=== PATIENT | female | born 2000 | race Native Hawaiian/Other Pacific Islander ===

== ENCOUNTER → 2018-03-10 | Outpatient (CLI) | payer OTHER ==
[~2018-03-10] MED LIST: AMOXICILLIN500 MG PO; ATARAX25 MG PO; CLARITIN-D 12 H1 TAB PO; FLONASE ALLERG9.9 ML NAS; KEFLEX500 MG PO; NAPROSYN500 MG PO; NKHM; PREDNISONE10 MG PO; PREDNISONE20 MG PO
[2018-03-10 11:27] LABS: BASO % 0.1 % (0.0-1.0); HEMATOCRIT 39.7 % (37.0-47.0); HEMOGLOBIN 12.9 g/dl (12.0-16.0); LYMPH # 1.6 10*3/uL (1.3-4.4); LYMPH % 11.8 % (27.0-41.0); MEAN CELL VOLUME 87.1 fl (81.0-99.0); MEAN CORPUSCULAR HGB 28.3 pg (27.0-31.0); MEAN CORPUSCULAR HGB CONC 32.5 g/dl (33.0-37.0); MEAN PLATELET VOLUME 10.2 fl (9.6-12.3); MONO # 0.9 10*3/uL (0.1-1.0); MONO % 6.3 % (3.0-9.0); NEUT # 11.2 10*3/uL (2.3-7.9); NEUT % 81.6 % (47.0-73.0); PLATELET COUNT AUTOMATED 357 10*3/uL (130-400); RED BLOOD COUNT 4.56 10*6/uL (4.10-5.10); RED CELL DISTRI WIDTH 12.4 % (0-14.5); WHITE BLOOD COUNT 13.7 10*3/uL (4.8-10.8)
[2018-03-10 12:02] LABS: ALKALINE PHOSPHATASE 70 U/L (45-117); BUN 9 mg/dl (7-24); CHLORIDE 102 mmol/L (98-107); CREATININE 0.94 mg/dL (0.55-1.02); POTASSIUM 3.8 mmol/L (3.5-5.1); SGOT/AST 16 IU/L (3-35); SGPT/ALT 24 U/L (12-78); SODIUM 139 mmol/L (136-145)
[2018-03-10 12:03] LABS: TOTAL PROTEIN 8.7 gm/dL (6.4-8.2)
== END | disposition home or self-care (01) ==
LOC: LAB 11:06
PROVIDERS: Internal Medicine
DX: Z00.01 Encounter for general adult medical examination with abnormal findings (principal); J03.90 Acute tonsillitis, unspecified; Z76.89 Persons encountering health services in other specified circumstances

== ENCOUNTER 2019-08-16 16:03 | Emergency (ER) | payer OTHER ==
[~2019-08-16] VITALS: Ht 172.7 cm; Wt 113.4 kg
[2019-08-16 16:03] VITALS: BP 118/77
== END 2019-08-16 17:03 | disposition home or self-care (01) ==
LOC: ED 16:03
DX: J35.8 Other chronic diseases of tonsils and adenoids (principal)

== ENCOUNTER 2024-12-01 05:39 | Emergency (ER) | payer SELFPAY ==
[~2024-12-01] VITALS: Ht 172.7 cm; Wt 136.1 kg
[2024-12-01 05:58] VITALS: BP 122/62
[2024-12-01 06:14] LABS: BILIRUBIN Negative (Negative); BLOOD 2+ (Negative); CLARITY Cloudy (Clear); COLOR Yellow (Yellow); GLUCOSE Negative (Negative); KETONE Negative (Negative); LEUKO ESTERASE 3+ (Negative); NITRITE Negative (Negative)
[2024-12-01] MEDS ORDERED: Ondansetron Hydrochloride 4 MG TAB SL ONE (06:15)
[2024-12-01 06:30] LABS: BACTERIA 3+; WBC TNTC wbc/hpf (0-5)
[2024-12-01] MEDS ORDERED: Phenazopyridine Hydrochlorid2 100 MG TAB PO ONE (06:30)
[2024-12-01] MEDS ORDERED: Ciprofloxacin Hydrochloride 500 MG TAB PO ONE (06:30)
[2024-12-01] MEDS ORDERED: PYRIDIUM100 MG PO (06:34)
[2024-12-01] MEDS ORDERED: CIPRO500 MG PO (06:34)
== END 2024-12-01 06:36 | disposition home or self-care (01) ==
LOC: ED 05:39
PROVIDERS: Internal Medicine
DX: N39.0 Urinary tract infection, site not specified (principal)